=== PATIENT | female | born 1955 ===

== ENCOUNTER 2022-05-29 05:48 | Day surgery (SDC) | payer OTHER ==
[~2022-05-29] VITALS: Ht 160 cm; Wt 102.1 kg
[~2022-05-29 05:48] MED LIST: ALLERGY RELIE15.8 ML NASAL; FARXIGA10 MG PO; FENOFIBRATE134 MG PO; GABAPENTIN300 M2 PO; GLIMEPIRIDE4 MG; MONTELUKAST SOD10 MG PO; PROTONIX40 MG PO; RESTORIL30 M1 PO; SIMVASTATIN5 MG PO; TRANDOLAPR-VER1 EACH PO; ZOLOFT100 MG PO; [UNRECOGNIZED DRUG - OTHER]; [UNRECOGNIZED DRUG - OTHER] PO
[2022-05-29] MEDS ORDERED: ULTRACET PO (10:10)
== END 2022-05-29 14:40 | disposition home or self-care (01) ==
LOC: CIR.AMB 05:48
PROVIDERS: ATTEND Obstetrics & Gynecology Gynecology
DX: N81.6 Rectocele (principal); Z20.822 Contact with and (suspected) exposure to COVID-19; N81.5 Vaginal enterocele; N81.11 Cystocele, midline; I10 Essential (primary) hypertension; E11.9 Type 2 diabetes mellitus without complications; G47.33 Obstructive sleep apnea (adult) (pediatric); G43.909 Migraine, unspecified, not intractable, without status migrainosus